=== PATIENT | male | born 1985 | race Caucasian/White ===

== ENCOUNTER 2020-09-21 15:43 | Outpatient (CLI) | payer OTHER | END 2020-09-21 15:44 | disposition home or self-care (01) | LOC: DI.N 15:43 | PROVIDERS: ATTEND Physician Assistant | DX: M25.562 Pain in left knee (principal); M25.522 Pain in left elbow ==

== ENCOUNTER 2020-09-21 15:52 | Outpatient (CLI) | payer OTHER ==
--- NOTE | 2020-09-21 17:22 | XRAY Report ---
PROCEDURE: Elbow 3 View RT INDICATIONS: R ELBOW PX TECHNIQUE: 3 views of the elbow were acquired. COMPARISON: None FINDINGS: Bones: No acute fractures or dislocations. Chronic calcification noted over the medial epicondyle o f the distal right humerus. No suspicious bony lesions. Soft tissues: No elbow joint effusion. No suspicious soft tissue calcifications. IMPRESSION: Right elbow without acute fracture, dislocation or significant degenerative change. Reviewed by: Scot Alvarado MD on 09/21/2020 5:21 PM PST Approved by: Scot Alvarado MD on 09/21/2020 5:21 PM PST Station ID: [id number]
--- NOTE | 2020-09-21 17:40 | XRAY Report ---
PROCEDURE: Knee 2 View LT INDICATIONS: L KNEE PX TECHNIQUE: 2 views of the left knee(s) were acquired. COMPARISON: None. FINDINGS: Bones: No fractures or dislocations. No suspicious bony lesions. Mild osteophytic degenerative virk ges noted in the medial and patellofemoral compartments. Soft tissues: No joint effusion. No suspicious soft tissue calcifications. IMPRESSION: Mild osteoarthritis. Reviewed by: France David MD, PhD on 09/21/2020 5:38 PM PST Approved by: France David MD, PhD on 09/21/2020 5:38 PM PST Station ID: [id number]
== END 2020-09-21 23:59 | disposition home or self-care (01) ==
LOC: DI.N 15:52
PROVIDERS: ATTEND Physician Assistant
DX: M17.12 Unilateral primary osteoarthritis, left knee (principal); M25.521 Pain in right elbow; M25.522 Pain in left elbow

== ENCOUNTER 2021-04-07 07:58 | Outpatient (CLI) | payer OTHER ==
--- NOTE | 2021-04-07 12:50 | XRAY Report ---
PROCEDURE: Knee 4 View LT INDICATIONS: L KNEE PX TECHNIQUE: 3 views of the left knee(s) were acquired. COMPARISON: None. FINDINGS: Bones: No fractures or dislocations. No suspicious bony lesions. Soft tissues: No joint effusion. No suspicious soft tissue calcifications. IMPRESSION: Normal left knee Reviewed by: Zain Subramanian on 04/07/2021 12:49 PM PDT Approved by: Zain Subramanian on 04/07/2021 12:49 PM PDT Station ID: [id number]
== END 2021-04-07 23:59 | disposition home or self-care (01) ==
LOC: DI.N 07:58
PROVIDERS: ATTEND Physician Assistant
DX: M25.562 Pain in left knee (principal)

== ENCOUNTER 2021-11-18 15:00 | Outpatient (CLI) | payer SELFPAY | END 2021-11-18 23:59 | disposition home or self-care (01) | LOC: LAB.WCP 15:00 | PROVIDERS: ATTEND Nurse Practitioner | DX: U07.1 COVID-19 (principal) ==